=== PATIENT | male | born 1985 | race Caucasian/White ===

== ENCOUNTER → 2016-03-09 07:27 | Outpatient (CLI) | payer BC | LOC: D.US 07:27 | DX: R10.9 Unspecified abdominal pain (principal); R19.7 Diarrhea, unspecified ==

== ENCOUNTER → 2016-03-20 12:23 | Outpatient (CLI) | payer BC | END | disposition home or self-care (01) | LOC: D.NM 03-16 13:00 | DX: R10.9 Unspecified abdominal pain (principal); R19.7 Diarrhea, unspecified ==

== ENCOUNTER → 2017-04-04 16:02 | Outpatient (CLI) | payer BC | END | disposition home or self-care (01) | LOC: D.MRI 04-03 16:30 | DX: M25.512 Pain in left shoulder (principal) ==

== ENCOUNTER 2017-05-23 06:04 | Day surgery (SDC) | payer BC ==
[~2017-05-23] VITALS: Ht 182.9 cm; Wt 95.3 kg
--- NOTE | ~2017-05-23 | OP ---
PATIENT NAME: JING SEXTON MEDICAL RECORD: [id number] :83 LOCATION:D.OPS ADMISSION DATE: SURGEON: MATIAS MARTINEZ MD DATE OF OPERATION: 05/23/2017 PREOPERATIVE DIAGNOSES: SLAP lesion and impingement. POSTOPERATIVE DIAGNOSIS: Impingement syndrome. PROCEDURES: 1. Arthroscopic distal clavicle excision under separate incision - 1 cm. 2. Arthroscopic subacromial decompression, acromioplasty, and bursectomy. SURGEON: Matias Martinez MD ANESTHESIA: General. INTRAOPERATIVE COMPLICATIONS: None. SUMMARY OF PATHOLOGIC FINDINGS: While the patient did have a minimal amount of biceps tendinitis, the bicipital labral complex was completely intact. Very minimal fissuring at the labral attachment, therefore, I did not feel like a SLAP repair was warranted. OPERATIVE SUMMARY IN DETAIL: After obtaining the appropriate preoperative orthopedic surgery consent as well as anesthetic consultation, evaluation and clearance, the patient was brought to the operating room and placed on the operating table in supine position. After general laryngeal mask administered, the patient was placed in a right lateral decubitus position. All pressure points were well padded to include down leg peroneal pad as well as axillary roll. The patient was held firmly to the operating table using the vacuum pack suction system. Left upper extremity and shoulder were then prepped and draped in routine sterile fashion. The arm was held in the Arthrex traction boom at 30 degrees of forward flexion, 30 degrees of abduction with 10 pounds of traction laterally. Arthroscopy was established in the glenohumeral joint from a posterior portal. Anterior portal was established in the anterior safe interval. Diagnostic arthroscopy did reveal the above findings. The bicipital labral junction was intact with no evidence of SLAP or labral tearing. Attention was then turned to the subacromial space. While on the subacromial space, [place] tissue ablation system was utilized to denude the undersurface of the acromion of all soft tissue elements and release the coracoacromial ligament. A 5-0 barrel bur was used to perform acromioplasty at the level of acromioclavicular joint. At this point, through a separate arthroscopic portal anteriorly and under direct arthroscopic visualization, distal clavicle was excised 1 cm. Having completed this, all bursa was taken down anteriorly, laterally, and posteriorly. The rotator cuff was in good overall condition. After all bursa was removed, arthroscopy portal was closed in routine interrupted fashion using 4-0 Prolene. Sterile dressings were applied. The patient was awakened, taken to recovery room in stable condition. All final needle and sponge counts were correct. TRANSINT:[id number] Voice Confirmation ID: [id number] DOCUMENT ID: [id number] OPERATIVE REPORT [id number] JING SEXTON MD, MATIAS CARIAS at 1520 CC: [id number] DICTATION DATE: 05/23/17 0838 [facility] COORDINATOR: 05/23/17 1024 [facility] 05/23/17 [facility] [address] [place] [address]
[~2017-05-23 06:04] MED LIST: ZANTAC300 MG PO
[2017-05-23 06:28] VITALS: BP 112/79; Ht 182.9 cm; Wt 95.3 kg
[2017-05-23] MEDS ORDERED: HYDROCODONE-APA1 TAB PO (08:34)
== END 2017-05-23 10:30 | disposition home or self-care (01) ==
LOC: D.OPS 06:04 → D.PAN 07:30 → D.OPS 07:30
DX: S43.432A Superior glenoid labrum lesion of left shoulder, initial encounter (principal); X58.XXXA Exposure to other specified factors, initial encounter; M75.42 Impingement syndrome of left shoulder; M75.22 Bicipital tendinitis, left shoulder; Z01.812 Encounter for preprocedural laboratory examination

== ENCOUNTER → 2018-04-24 09:33 | Outpatient (CLI) | payer BC ==
[2017-05-23 06:28] VITALS: BMI 28.5
[~2018-04-24 09:33] MED LIST changes: +HYDROCODONE-APA1 TAB PO
== END | disposition home or self-care (01) ==
LOC: D.RAD 09:33
PROVIDERS: ATTEND Clinical Nurse Specialist Family Health
DX: M25.512 Pain in left shoulder (principal)